=== PATIENT | male | born 1935 | race Caucasian/White ===

== ENCOUNTER 2018-01-14 12:11 | Emergency (ER) | payer MEDICARE ==
[~2018-01-14] VITALS: Ht 180.3 cm; Wt 104.3 kg
[~2018-01-14 12:11] MED LIST: ALBU90OI; AMLO10 PO; AMLO5 PO; AMOX500; ASPI325EC PO; ASPI81CH PO; ATEN25; ATOR10 PO; CAND32; CHLO25B PO; CHOLP PO; CLOP75 PO; DOXE50; DOXE50 PO; HYDACE5 PO; HYDCHL25; IPRA.03NI; Isosorbide Mono60 MG PO; Klor-Con M1010 MEQ PO; METF500C PO; METO50 PO; METPRE4DP PO; Nitrostat0.4 MG SL; PANT40 PO; POTA8; POTA8 PO; RANO500T PO; SIMV10 PO; SIMVASTATIN
[2018-01-14] MEDS ORDERED: PANT40 PO (12:31)
[2018-01-14 12:52] LABS: BASOPHILS ABSOLUTE AUTO 0.06 K/mm3 (0.00-0.23); BASOPHILS PERCENT AUTO 1 % (0-2); EOSINOPHILS ABSOLUTE AUTO 0.11 K/mm3 (0.00-0.68); EOSINOPHILS PERCENT AUTO 2 % (0-6); Hematocrit 42.6 % (37.0-53.0); Hemoglobin 14.3 g/dL (13.5-17.5); IMMATURE GRAN ABSOLUTE AUTO 0.02 K/mm3 (0.00-0.10); IMMATURE GRAN PERCENT AUTO 0 % (0-1); LYMPHOCYTES PERCENT AUTO 19 % (21-46); MONOCYTES ABSOLUTE AUTO 0.52 K/mm3 (0.16-1.47); MONOCYTES PERCENT AUTO 8 % (4-13); Mean Corpuscular HGB 29.5 pg (26.0-34.0); Mean Corpuscular HGB Conc 33.6 g/dL (31.5-36.5); Mean Corpuscular Volume 88 fL (80-100); Mean Platelet Volume 10.3 fL (9.1-12.4); NEUTROPHILS ABSOLUTE AUTO 4.88 K/mm3 (1.96-9.15); NEUTROPHILS PERCENT AUTO 71 % (41-73); Platelet Count 187 K/mm3 (150-400); RDW Coefficient Variation 12.2 % (11.7-14.2); RDW Standard Deviation 39.6 fL (35.1-46.3); Red Blood Cell Count 4.85 M/mm3 (4.30-5.90); White Blood Cell Count 6.89 K/mm3 (4.00-11.30)
[2018-01-14 13:07] LABS: Source, Urine Voided
[2018-01-14 13:11] LABS: Appearance, Urine Clear (Clear); Bilirubin, Urine Neg (Neg); Blood, Urine Neg (Neg); Color, Urine Yellow (P-Yellow); Glucose Qualitative, Urine 2+ (Neg); Ketones, Urine Neg (Neg); Leukocyte Esterase, Urine 1+ (Neg); Nitrite, Urine Neg (Neg); Protein, Urine 2+ (Neg); Specific Gravity, Urine 1.015 (1.003-1.022); Urobilinogen, Urine NORM (Normal)
[2018-01-14 13:12] LABS: Albumin, Blood 3.5 g/dL (3.4-5.0); Bilirubin, Total 0.6 mg/dL (0.1-1.0); Bun/Creatinine Ratio 12.9 (12.0-20.0); Calcium, Blood 8.6 mg/dL (8.5-10.1); Creatinine, Blood 1.4 mg/dL (0.60-1.20); Globulin, Blood 3.5 g/dL (2.2-4.0); Potassium, Blood 4.4 mmol/L (3.5-5.5)
[2018-01-14 13:39] LABS: Bacteria Rare /hpf; Mucus Mod (0-Heavy); Red Blood Cells, Urine 0-2 /hpf (0-2); Squamous Epithelial Cells Few /hpf (Few)
== END 2018-01-14 15:15 | disposition home or self-care (01) ==
LOC: ER 12:11
PROVIDERS: Emergency Medicine
DX: I10 Essential (primary) hypertension (principal); R55 Syncope and collapse; E11.9 Type 2 diabetes mellitus without complications; E78.00 Pure hypercholesterolemia, unspecified; Z87.891 Personal history of nicotine dependence
CPT/HCPCS: 36415; 70450; 71046; 80053; 81001; 84484; 85025; 93005; 93010; 99284-25

== ENCOUNTER 2018-04-19 06:43 | Emergency (ER) | payer MEDICARE ==
[~2018-04-19] VITALS: Ht 180.3 cm; Wt 108.9 kg
[2018-04-19 07:15] LABS: BASOPHILS ABSOLUTE AUTO 0.03 K/mm3 (0.00-0.23); BASOPHILS PERCENT AUTO 0 % (0-2); EOSINOPHILS ABSOLUTE AUTO 0.02 K/mm3 (0.00-0.68); EOSINOPHILS PERCENT AUTO 0 % (0-6); Hematocrit 42.9 % (37.0-53.0); Hemoglobin 14.3 g/dL (13.5-17.5); IMMATURE GRAN ABSOLUTE AUTO 0.06 K/mm3 (0.00-0.10); IMMATURE GRAN PERCENT AUTO 1 % (0-1); LYMPHOCYTES ABSOLUTE AUTO 0.93 K/mm3 (0.84-5.20); LYMPHOCYTES PERCENT AUTO 7 % (21-46); MONOCYTES PERCENT AUTO 5 % (4-13); Mean Corpuscular HGB 28.9 pg (26.0-34.0); Mean Corpuscular HGB Conc 33.3 g/dL (31.5-36.5); Mean Corpuscular Volume 87 fL (80-100); Mean Platelet Volume 10.5 fL (9.1-12.4); NEUTROPHILS ABSOLUTE AUTO 11.51 K/mm3 (1.96-9.15); NEUTROPHILS PERCENT AUTO 87 % (41-73); Platelet Count 198 K/mm3 (150-400); RDW Coefficient Variation 12.5 % (11.7-14.2); RDW Standard Deviation 39.8 fL (35.1-46.3); Red Blood Cell Count 4.94 M/mm3 (4.30-5.90); White Blood Cell Count 13.25 K/mm3 (4.00-11.30)
[2018-04-19 07:28] LABS: Alanine Aminotransfer (ALT/SGP 26 U/L (12-78); Albumin, Blood 3.8 g/dL (3.4-5.0); Alk Phos 99 U/L (50-136); Anion Gap 7 mmol/L (6-16); Aspartate Aminotrans (AST/SGOT 18 U/L (12-37); Bilirubin, Total 0.7 mg/dL (0.1-1.0); Blood Urea Nitrogen 20 mg/dL (8-24); Bun/Creatinine Ratio 17.9 (12.0-20.0); CO2, Blood 27 mmol/L (21-32); Calcium, Blood 8.8 mg/dL (8.5-10.1); Chloride, Blood 100 mmol/L (98-108); Creatinine, Blood 1.12 mg/dL (0.60-1.20); Globulin, Blood 3.8 g/dL (2.2-4.0); Glomerular Filtration Rate >60 (60-); Glucose, Blood 178 mg/dL (70-99); Potassium, Blood 4.1 mmol/L (3.5-5.5); Sodium, Blood 134 mmol/L (136-145); Total Protein, Blood 7.6 g/dL (6.4-8.2)
[2018-04-19 07:38] LABS: Source, Urine Clean Catch
[2018-04-19 07:41] LABS: Bilirubin, Urine Neg (Neg); Blood, Urine Neg (Neg); Glucose Qualitative, Urine 2+ (Neg); Ketones, Urine 2+ (Neg); Leukocyte Esterase, Urine 1+ (Neg); Nitrite, Urine Neg (Neg); Protein, Urine 2+ (Neg); Specific Gravity, Urine 1.025 (1.003-1.022); Urobilinogen, Urine NORM (Normal)
[2018-04-19 07:47] LABS: Appearance, Urine Clear (Clear); Color, Urine Yellow (P-Yellow)
[2018-04-19 07:50] LABS: Red Blood Cells, Urine Rare /hpf (0-2); Squamous Epithelial Cells Rare /hpf (Few)
[2018-04-19 07:51] LABS: Bacteria Few /hpf; Mucus Light (0-Heavy)
[2018-04-19] MEDS ORDERED: Colace100 MG PO (11:49)
[2018-04-19] MEDS ORDERED: Flomax0.4 MG PO (11:49)
== END 2018-04-19 12:13 | disposition home or self-care (01) ==
LOC: ER 06:43
PROVIDERS: Emergency Medicine
DX: K56.41 Fecal impaction (principal); R33.9 Retention of urine, unspecified; E11.9 Type 2 diabetes mellitus without complications; E78.00 Pure hypercholesterolemia, unspecified; Z87.891 Personal history of nicotine dependence; Z86.73 Personal history of transient ischemic attack (TIA), and cerebral infarction without residual deficits; Z88.0 Allergy status to penicillin; Z88.8 Allergy status to other drugs, medicaments and biological substances; Z79.82 Long term (current) use of aspirin; Z79.899 Other long term (current) drug therapy
CPT/HCPCS: 51701; 51798; 74022; 80053; 81001; 83690; 85025; 87086; 99284-25

== ENCOUNTER 2018-04-30 18:11 | Inpatient (IN) | payer MEDICARE ==
[~2018-04-30] VITALS: Ht 180.3 cm; Wt 111.9 kg
[~2018-04-30 18:11] MED LIST changes: +Colace100 MG PO; +Flomax0.4 MG PO
[2018-04-30 18:41] LABS: BASOPHILS ABSOLUTE AUTO 0.02 K/mm3 (0.00-0.23); BASOPHILS PERCENT AUTO 0 % (0-2); EOSINOPHILS ABSOLUTE AUTO 0.05 K/mm3 (0.00-0.68); EOSINOPHILS PERCENT AUTO 1 % (0-6); Hematocrit 38.1 % (37.0-53.0); Hemoglobin 12.7 g/dL (13.5-17.5); IMMATURE GRAN ABSOLUTE AUTO 0.04 K/mm3 (0.00-0.10); IMMATURE GRAN PERCENT AUTO 1 % (0-1); LYMPHOCYTES ABSOLUTE AUTO 1.38 K/mm3 (0.84-5.20); LYMPHOCYTES PERCENT AUTO 16 % (21-46); MONOCYTES ABSOLUTE AUTO 0.77 K/mm3 (0.16-1.47); MONOCYTES PERCENT AUTO 9 % (4-13); Mean Corpuscular HGB 29.3 pg (26.0-34.0); Mean Corpuscular HGB Conc 33.3 g/dL (31.5-36.5); Mean Corpuscular Volume 88 fL (80-100); Mean Platelet Volume 10.2 fL (9.1-12.4); NEUTROPHILS ABSOLUTE AUTO 6.24 K/mm3 (1.96-9.15); NEUTROPHILS PERCENT AUTO 73 % (41-73); Platelet Count 217 K/mm3 (150-400); RDW Coefficient Variation 12.4 % (11.7-14.2); RDW Standard Deviation 40.3 fL (35.1-46.3); Red Blood Cell Count 4.33 M/mm3 (4.30-5.90)
[2018-04-30 18:56] LABS: International Normalized Ratio 1.03; Prothrombin Time Results 10.9 Sec (9.7-11.5)
[2018-04-30 18:59] LABS: Albumin, Blood 2.8 g/dL (3.4-5.0); Albumin/Globulin Ratio 0.7 (0.8-1.8); Bilirubin, Total 0.7 mg/dL (0.1-1.0); Calcium, Blood 8.3 mg/dL (8.5-10.1); Creatinine, Blood 1.25 mg/dL (0.60-1.20); Free Thyroxine 1.54 ng/dL (0.70-1.60); Magnesium, Blood 1.8 mg/dL (1.6-2.4); Potassium, Blood 3.9 mmol/L (3.5-5.5); Total Protein, Blood 6.8 g/dL (6.4-8.2); Troponin I 0.255 ng/mL (0.000-0.040)
[2018-04-30 19:03] LABS: Thyroid Stimulating Hormone 0.904 uIU/mL (0.360-4.800)
--- NOTE | 2018-04-30 21:45 | NUR ---
ASSUMED CARE- PT ARRIVES TO [facility] AT APPROXIMATELY 2114. AOX4, [place], AMBULATES WITH STANDBY ASSIST TO HOSPITAL BED WITHOUT DIFFICULTY. CARDIZEM DRIP CURRENTLY INFUSING AT 10 MG/HR FOR ATRIAL FIBRILLATION WITH RATE IN THE 110'S-120'S THAT ELEVATES SLIGHTLY WITH ACTIVITY, ALL OTHER VSS. LUNGS SOUNDS CLEAR IN ALL UPPER LOBES, DIMINISHED IN THE BASES. DRY, HACKING, NON-PRODUCTIVE COUGH NOTED, PT STATES HE HAS HAD IT "FOR A BIT". PT DENIES CHEST PAIN, SHORTNESS OF BREATH, OR DIZZINESS/LIGHTHEADEDNESS. PT ORIENTED TO ROOM AND CALL LIGHT SYSTEM, ENCOURAGED TO CALL FOR ASSISTANCE WITH ANY NEEDS, INCLUDING RESTROOM ASSISTANCE. PT EDUCATED ON ORDERED HEPARIN DRIP AND SECONDARY IV STARTED FOR INFUSION. PT NOTED TO HAVE GLASSES AND STATES THAT HE HAS FULL UPPER DENTURES AND PARTIAL LOWER DENTURES, ALL WITH PATIENT. WILL CONTINUE WITH ADMISSION AND MONITORING. BED IN LOWEST POSITION, CALL LIGHT IN REACH.
--- NOTE | 2018-05-01 00:56 | NUR ---
RHYTHM CONVERSION PT CONVERTED TO NORMAL SINUS RHYTHM AT 0056 WITH A RATE IN THE 70-80'S. CARDIZEM DRIP CURRENTLY ON STANDBY. NO NOTED CHANGE IN PATIENT CONDITION. WILL CONTINUE MONITORING. BED IN LOW POSITION, CALL LIGHT IN REACH.
[2018-05-01 04:04] LABS: Hematocrit 37.9 % (37.0-53.0); Hemoglobin 12.4 g/dL (13.5-17.5); Mean Corpuscular HGB 28.8 pg (26.0-34.0); Mean Corpuscular HGB Conc 32.7 g/dL (31.5-36.5); Mean Corpuscular Volume 88 fL (80-100); Mean Platelet Volume 10.3 fL (9.1-12.4); Platelet Count 232 K/mm3 (150-400); RDW Coefficient Variation 12.3 % (11.7-14.2); RDW Standard Deviation 39.8 fL (35.1-46.3)
[2018-05-01 04:22] LABS: Anion Gap 7 mmol/L (6-16); Blood Urea Nitrogen 15 mg/dL (8-24); Bun/Creatinine Ratio 12.6 (12.0-20.0); CO2, Blood 29 mmol/L (21-32); Chloride, Blood 99 mmol/L (98-108); Creatinine, Blood 1.19 mg/dL (0.60-1.20); Glomerular Filtration Rate >60 (60-); Glucose, Blood 181 mg/dL (70-99); Potassium, Blood 3.9 mmol/L (3.5-5.5); Sodium, Blood 135 mmol/L (136-145)
--- NOTE | 2018-05-01 06:12 | NUR ---
SHIFT SUMMARY- PT HAS REMAINED AOX4 THROUGHOUT SHIFT. VSS. PLEASANT AND COOPERATIVE WITH CARE. PT HAS REMAINED IN SINUS RHYTHM SINCE CONVERSION EARLY THIS AM AND CARDIZEM DRIP REMAINS ON STANDBY. HEPARIN DRIP INFUSING PER ORDERS AND TITRATED PER PHARMACY. PT HAS DENIED CHEST PAIN OR SHORTNESS OF BREATH SINCE ARRIVAL. NO OTHER CHANGES FROM INITIAL ASSESSMENT. WILL CONTINUE TO MONITOR AND REPORT TO ONCOMING RN. BED IN LOW POSITION, CALL LIGHT IN REACH.
--- NOTE | 2018-05-01 08:29 | NUR ---
BEGINNING OF SHIFT Assumed care of pt at 0700. Report received from DAVID Arita. Shift assessment completed. Pt in normal sinus rhtyhm. Room air. Mobilizes with SBA. Bed in lowest position. Call light in reach. Pt denies need at this time.
--- NOTE | 2018-05-01 09:42 | NUR ---
Echocardiogram completed.
--- NOTE | 2018-05-01 18:17 | NUR ---
SHIFT SUMMARY No acute changes t/o shift. Pt has remained in SR for entire shift. Independent in room. Tolerating activity well. This RN discussed new medications precribed to patient today, as well as side effects. Pt asked questions. At end of discussion, pt verbalized understanding for why he is taking new medication and what potential side effects are. Bed in lowest position. Call light in reach. Pt denies need at this time. Will continue to closely monitor until care handoff and bedside report with oncoming RN.
--- NOTE | 2018-05-02 | NUR ---
MIDNIGHT VITALS PT REQUESTING TO SLEEP AND NOT BE WOKEN UP FOR MIDNIGHT VITAL SIGNS UNLESS ALREADY AWAKE.
[2018-05-02 05:46] LABS: BASOPHILS ABSOLUTE AUTO 0.02 K/mm3 (0.00-0.23); BASOPHILS PERCENT AUTO 0 % (0-2); EOSINOPHILS ABSOLUTE AUTO 0.14 K/mm3 (0.00-0.68); EOSINOPHILS PERCENT AUTO 2 % (0-6); Hemoglobin 11.6 g/dL (13.5-17.5); IMMATURE GRAN ABSOLUTE AUTO 0.04 K/mm3 (0.00-0.10); IMMATURE GRAN PERCENT AUTO 1 % (0-1); LYMPHOCYTES ABSOLUTE AUTO 1.16 K/mm3 (0.84-5.20); LYMPHOCYTES PERCENT AUTO 14 % (21-46); MONOCYTES ABSOLUTE AUTO 0.68 K/mm3 (0.16-1.47); MONOCYTES PERCENT AUTO 8 % (4-13); Mean Corpuscular HGB 28.8 pg (26.0-34.0); Mean Corpuscular HGB Conc 33.1 g/dL (31.5-36.5); Mean Corpuscular Volume 87 fL (80-100); Mean Platelet Volume 10.1 fL (9.1-12.4); NEUTROPHILS ABSOLUTE AUTO 6.33 K/mm3 (1.96-9.15); NEUTROPHILS PERCENT AUTO 76 % (41-73); Platelet Count 219 K/mm3 (150-400); RDW Coefficient Variation 12.3 % (11.7-14.2); RDW Standard Deviation 39.1 fL (35.1-46.3); Red Blood Cell Count 4.03 M/mm3 (4.30-5.90); White Blood Cell Count 8.37 K/mm3 (4.00-11.30)
[2018-05-02 06:06] LABS: Alanine Aminotransfer (ALT/SGP 43 U/L (12-78); Albumin, Blood 2.5 g/dL (3.4-5.0); Albumin/Globulin Ratio 0.7 (0.8-1.8); Alk Phos 112 U/L (50-136); Anion Gap 8 mmol/L (6-16); Aspartate Aminotrans (AST/SGOT 25 U/L (12-37); Bilirubin, Total 0.6 mg/dL (0.1-1.0); Blood Urea Nitrogen 13 mg/dL (8-24); Bun/Creatinine Ratio 10.6 (12.0-20.0); CO2, Blood 29 mmol/L (21-32); Chloride, Blood 100 mmol/L (98-108); Creatinine, Blood 1.23 mg/dL (0.60-1.20); Globulin, Blood 3.7 g/dL (2.2-4.0); Glomerular Filtration Rate >60 (60-); Glucose, Blood 133 mg/dL (70-99); Magnesium, Blood 1.9 mg/dL (1.6-2.4); Potassium, Blood 4.2 mmol/L (3.5-5.5); Sodium, Blood 137 mmol/L (136-145); Total Protein, Blood 6.2 g/dL (6.4-8.2)
--- NOTE | 2018-05-02 06:35 | NUR ---
SHIFT SUMMARY- PT HAS REMAINED AOX4 THROUGHOUT SHIFT. VSS. PLEASANT AND COOPERATIVE WITH CARE. PT HAS RESTED THROUGHOUT MOST OF THE NIGHT. DENIES CHEST PAIN, SHORTNESS OF BREATH OR DIZZINESS. PT CONTINUES TO AMBULATE INDEPENDENTLY IN ROOM. NO OTHER CHANGES NOTED FROM INITIAL ASSESSMENT. WILL CONTINUE TO MONITOR AND REPORT TO ONCOMING RN. BED IN LOW POSITION, CALL LIGHT IN REACH.
[2018-05-02 08:29] LABS: Source, Urine Voided
[2018-05-02 08:42] LABS: Appearance, Urine Hazy (Clear); Bilirubin, Urine Neg (Neg); Blood, Urine 3+ (Neg); Color, Urine Yellow (P-Yellow); Glucose Qualitative, Urine Neg (Neg); Ketones, Urine 1+ (Neg); Leukocyte Esterase, Urine 3+ (Neg); Nitrite, Urine Pos (Neg); Protein, Urine 2+ (Neg); Specific Gravity, Urine 1.005 (1.003-1.022); Urobilinogen, Urine 1+ (Normal)
--- NOTE | 2018-05-02 08:47 | NUR ---
BEGINNING OF SHIFT Assumed care at 0700. Report received from Lyla HERNANDEZ. Pt on room air. Independent in room. Verbalizes desire to go home today. Pt okay to go home per cardiology. Awaiting hospitalist to round on pt. Bed in lowest position. Call light in reach. Pt denies need at this time.
[2018-05-02 08:53] LABS: White Blood Cells, Urine TNTC /hpf (0-5)
[2018-05-02 08:54] LABS: Bacteria Many /hpf; Red Blood Cells, Urine 50-100 /hpf (0-2); Squamous Epithelial Cells Not Seen /hpf (Few)
[2018-05-02] MEDS ORDERED: ASPI81CH PO ×2 (10:42→10:59)
[2018-05-02] MEDS ORDERED: XARELTO20 MG PO (10:56)
[2018-05-02] MEDS ORDERED: Amiodarone HCl200 MG PO (10:57)
[2018-05-02] MEDS ORDERED: LEVFLO500 PO (11:32)
--- NOTE | 2018-05-02 12:46 | NUR ---
DISCHARGE Pt discharged from unit at 1222 accompanied by spouse. Pt escorted out of hospital via wheelchair, accompanied by Juliette PATEL. Medication changes reviewed with patient. New medications and side effects reviewed with patient. Written prescriptions provided and medications faxed to [facility]. Pt also sent home with sample of 20 mg Xarelto with instructions. Telemetry removed. IV access discontinued.
== END 2018-05-02 12:20 | disposition home or self-care (01) | DRG 309 ==
LOC: ER 18:11 → PCU 20:45
PROVIDERS: Emergency Medicine; Internal Medicine; Nurse Practitioner Acute Care; ADMIT Hospitalist
DX: I48.91 Unspecified atrial fibrillation (principal); I50.22 Chronic systolic (congestive) heart failure; I25.10 Atherosclerotic heart disease of native coronary artery without angina pectoris; E78.5 Hyperlipidemia, unspecified; E11.9 Type 2 diabetes mellitus without complications; I11.0 Hypertensive heart disease with heart failure; K21.9 Gastro-esophageal reflux disease without esophagitis; D33.2 Benign neoplasm of brain, unspecified; Z95.5 Presence of coronary angioplasty implant and graft; Z95.3 Presence of xenogenic heart valve; Z88.1 Allergy status to other antibiotic agents; Z88.0 Allergy status to penicillin; Z88.8 Allergy status to other drugs, medicaments and biological substances; Z79.82 Long term (current) use of aspirin; Z79.84 Long term (current) use of oral hypoglycemic drugs; Z79.899 Other long term (current) drug therapy
CPT/HCPCS: 36415; 71046; 80048; 80053; 81001; 82947; 83735; 83880; 84439; 84443; 84484; 85025; 85027; 85610; 85730; 87077; 87086; 87186; 93005; 93010; 93306; 96365; 99285-25; J1644; J1940

== ENCOUNTER 2018-08-31 06:09 | Day surgery (SDC) | payer MEDICARE ==
[~2018-08-31] VITALS: Ht 180.3 cm; Wt 106.7 kg
[~2018-08-31 06:09] MED LIST changes: +ATOR40TA PO; +Amiodarone HCl200 MG PO; +ELIQUIS5 MG PO; +LEVFLO500 PO; +LO-DOSE ASPIRIN81 MG PO; +METAMUCIL SUGA283 GM PO; +METFORMIN HCL500 MG PO; +METO25 PO; +NITR.4SL SL; +Pacerone100 MG PO; +TAMS.4ER PO; +XARELTO20 MG PO
[2018-09-01] MEDS ORDERED: Amiodarone HCl200 MG PO ×2 (21:55)
[2018-09-01] MEDS ORDERED: DOCU100 PO ×2 (21:59)
[2018-09-01] MEDS ORDERED: METF500 PO ×2 (22:00)
[2018-09-01] MEDS ORDERED: MELA3 PO ×2 (22:00)
[2018-09-01] MEDS ORDERED: TRIA15CR3 TOP ×2 (22:02)
== END 2018-08-31 10:05 | disposition home or self-care (01) ==
LOC: ORSCSDS 06:09
PROVIDERS: Otolaryngology
PROC: 0CUT0JZ Supplement Right Vocal Cord with Synthetic Substitute, Open Approach (ICD-10-PCS; principal; 2018-08-31 07:30)
DX: J38.00 Paralysis of vocal cords and larynx, unspecified (principal); R13.14 Dysphagia, pharyngoesophageal phase; I10 Essential (primary) hypertension; I25.10 Atherosclerotic heart disease of native coronary artery without angina pectoris; J44.9 Chronic obstructive pulmonary disease, unspecified; Z87.891 Personal history of nicotine dependence; E11.9 Type 2 diabetes mellitus without complications; Z86.73 Personal history of transient ischemic attack (TIA), and cerebral infarction without residual deficits; Z79.899 Other long term (current) drug therapy; Z79.82 Long term (current) use of aspirin
CPT/HCPCS: 82947; C1878; J1100; J2250; J2704; J7120

== ENCOUNTER 2018-09-01 20:47 | Inpatient (IN) | payer MEDICARE ==
[~2018-09-01] VITALS: Ht 177.8 cm; Wt 100.0 kg
[2018-09-01 21:24] LABS: BASOPHILS ABSOLUTE AUTO 0.03 K/mm3 (0.00-0.23); BASOPHILS PERCENT AUTO 0 % (0-2); EOSINOPHILS ABSOLUTE AUTO 0.03 K/mm3 (0.00-0.68); EOSINOPHILS PERCENT AUTO 0 % (0-6); Hematocrit 40.9 % (37.0-53.0); Hemoglobin 13.5 g/dL (13.5-17.5); IMMATURE GRAN ABSOLUTE AUTO 0.04 K/mm3 (0.00-0.10); IMMATURE GRAN PERCENT AUTO 0 % (0-1); LYMPHOCYTES ABSOLUTE AUTO 2.17 K/mm3 (0.84-5.20); LYMPHOCYTES PERCENT AUTO 19 % (21-46); MONOCYTES ABSOLUTE AUTO 0.89 K/mm3 (0.16-1.47); MONOCYTES PERCENT AUTO 8 % (4-13); Mean Corpuscular HGB 29.4 pg (26.0-34.0); Mean Corpuscular Volume 89 fL (80-100); NEUTROPHILS PERCENT AUTO 72 % (41-73); RDW Coefficient Variation 13.4 % (11.7-14.2); RDW Standard Deviation 43.7 fL (35.1-46.3); Red Blood Cell Count 4.59 M/mm3 (4.30-5.90); White Blood Cell Count 11.26 K/mm3 (4.00-11.30)
[2018-09-01 21:26] LABS: Mean Platelet Volume 11.4 fL (9.1-12.4); Platelet Count 142 K/mm3 (150-400)
[2018-09-01 21:38] LABS: International Normalized Ratio 1.01; Prothrombin Time Results 10.7 Sec (9.7-11.5)
[2018-09-01 21:39] LABS: Bun/Creatinine Ratio 11.5 (12.0-20.0); Calcium, Blood 8.8 mg/dL (8.5-10.1); Creatinine, Blood 1.3 mg/dL (0.60-1.20); Potassium, Blood 3.8 mmol/L (3.5-5.5)
--- NOTE | 2018-09-01 21:45 | NUR ---
ADMIT PT ARRIVES VIA STRETCHER FROM OR S/P NECK HEMATOMA EVACUATION. PER HX, PT HAD RT MEDIALIZATION THYROPLASTY W/ DR GUERRERO ON 08/31 AND RESTARTED ELIQUIS THAT SAME NIGHT. THIS EVENING, PT COUGHED AND NOTED IMMEDIATE SWELLING TO NECK BELOW CHIN. AT ADMIT, PT IS AWAKE, ALERT AND MAINTAINING OWN AIRWAY ON OXYMIZER AT 15L WITH O2 SATS OF 99% AND ON TXA GTT AT 63.75ML/HR X 1. NO STRIDOR AUSCULTATES AND VOICE IS HOARSE. PT HAS FREQUENT MOIST COUGH BUT IS MANAGING WELL WITH YANKAUER SUCTION. PT REPORTS HE FEELS THAT HIS BREATHING IS "MUCH BETTER" THAN AT ARRIVAL AND DENIES PAIN OR CONCERNS. PT'S DAUGHTER SILVIA TO ROOM AND PLANS TO SPEND THE NIGHT. ECG SHOWS SR, BP HYPERTENISIVE, AWAITING CALL BACK FROM DR DUMAS FOR ADMIT ORDERS.
[2018-09-01] MEDS ORDERED: Amiodarone HCl200 MG PO ×2 (21:55)
[2018-09-01] MEDS ORDERED: DOCU100 PO ×2 (21:59)
[2018-09-01] MEDS ORDERED: METF500 PO ×2 (22:00)
[2018-09-01] MEDS ORDERED: MELA3 PO ×2 (22:00)
[2018-09-01] MEDS ORDERED: TRIA15CR3 TOP ×2 (22:02)
--- NOTE | 2018-09-02 00:59 | NUR ---
UPDATE ADMIT ORDERS INITIATED. CONTINUES TO MANAGE AIRWAY WITH YANKAUER SUCTION. HAVE BEEN ABLE TO TITRATE O2 DOWN TO 5L/NC WITH O2 SATS IN THE MID 90'S. BP IMPROVED POST HYDRALAZINE ADMINISTRATION. NS AT 75ML/HR W/ TXA INFUSING.
--- NOTE | 2018-09-02 01:47 | NUR ---
DR DUMAS DR HERE TO ASSESS PT, NO NEW ORDERS AT THIS TIME.
[2018-09-02 05:03] LABS: Hematocrit 37.3 % (37.0-53.0); Hemoglobin 12.2 g/dL (13.5-17.5); Mean Corpuscular HGB 29.3 pg (26.0-34.0); Mean Corpuscular HGB Conc 32.7 g/dL (31.5-36.5); Mean Corpuscular Volume 89 fL (80-100); Platelet Count 136 K/mm3 (150-400); RDW Coefficient Variation 13.3 % (11.7-14.2); RDW Standard Deviation 44.2 fL (35.1-46.3); Red Blood Cell Count 4.17 M/mm3 (4.30-5.90); White Blood Cell Count 9.76 K/mm3 (4.00-11.30)
[2018-09-02 05:48] LABS: Alanine Aminotransfer (ALT/SGP 23 U/L (12-78); Albumin, Blood 3.4 g/dL (3.4-5.0); Albumin/Globulin Ratio 1.1 (0.8-1.8); Alk Phos 72 U/L (50-136); Anion Gap 4 mmol/L (6-16); Aspartate Aminotrans (AST/SGOT 15 U/L (12-37); Bilirubin, Total 0.5 mg/dL (0.1-1.0); Blood Urea Nitrogen 13 mg/dL (8-24); CO2, Blood 30 mmol/L (21-32); Calcium, Blood 8.3 mg/dL (8.5-10.1); Chloride, Blood 104 mmol/L (98-108); Creatinine, Blood 1.08 mg/dL (0.60-1.20); Glomerular Filtration Rate >60 (60-); Glucose, Blood 193 mg/dL (70-99); Potassium, Blood 4.2 mmol/L (3.5-5.5); Sodium, Blood 138 mmol/L (136-145); Total Protein, Blood 6.4 g/dL (6.4-8.2)
--- NOTE | 2018-09-02 06:23 | NUR ---
SHIFT SUMMARY NO ACUTE EVENTS OVERNIGHT. P'S VOICE SOUNDS LESS HOARSE THAN AT ARRIVAL AND PT CONTINUES TO REPORT HIS BREATHING HAS IMPROVED AND HE DOES NOT FEEL THE SWELLING THAT INITIALLY BROUGHT HIM IN TO ER. PT DOES HAVE THROAT PAIN WITH SWALLOW-NPO STATUS MAINTAINED. PT HAS FREQUENT PRODUCTIVE COUGH THAT HE IS MANAGING WITH YANKAUER SUCTION, SECRETIONS ARE MODERATELY THICK AND XAVIER-NO BLOOD. DRESSING HAS BLOOD STRIKE THROUGH ON THE LOWER BORDER. BP HAS BEEN HYPERTENSIVE, PT HAS BEEN MEDICATED X 2 WITH HYDRALAZINE AND X 1 WITH LABETALOL TO ACHIEVE SBP <160/REDUCED RISK OF BLEEDING. O2 SATS 97% ON 3L/NC, ECG SHOWS SR W/ BBB IN THE 70'S.
--- NOTE | 2018-09-02 15:10 | NUR ---
DR. GUERRERO HERE TO SEE SEE PT. DISCUSSED ALLOWING PT TO HAVE ANY PO INTAKE AND HE STATED THAT PT HAD BEEN WORKING WITH SPEECH THERAPY BEFORE LAST NIGHT'S EVENTS AND HE WAS A VERY HIGH RISK FOR ASPIRATION THEN. DR. GUERRERO BELIEVES PT WAS ONLY SUPPOSED TO BE TAKING TEASPOONFULS OF LIQUID NUTRITION DRINKS LIKE GLUCERNA. HE STATES THAT BECAUSE LAST NIGHTS EVENTS LIKELY INFLAMED PT'S THROAT FURTHER HE WOULD LIKE PT TO REMAIN COMPLETELY NPO UNTIL SPEECH THERAPY CAN SEE HIM. HE DISCUSSED THIS WITH THE PT AND DR. JACOBSON WELL. DR. GUERRERO GAVE OK FOR PT TO BE PCU STATUS. PT CONTINUES TO REST IN BED, DANGLE AT THE BEDSIDE AT TIMES. DRAINAGE ON THE DRESSING HAS REMAIN UNCHANGED THROUGHOUT THE SHIFT. PT DENIES ANY PAIN, EXCEPT A LITTLE WITH SWALLOWING. HE HAS A MODERATE AMT OF THICK XAVIER SPUTUM THAT HE HAS BEEN ABLE TO CLEAR BY CLEARING HIS THROAT INSTEAD OF FORCEFULLY COUGHING. HE STARTED THE SHIFT ON 3L/NC AND 97% SPO2, TURNED DOWN TO 2L/NC AND REMAINED 97% SO TRIED TURNING HIM TO RA, BUT PT DESATTED TO 88% SO TURNED BACK TO 1L/NC.
--- NOTE | 2018-09-02 17:39 | NUR ---
SHIFT SUMMARY PT HAS REMAINED NPO THROUGHOUT SHIFT. HAS BEEN MANAGING THICK ORAL SECRETIONS BY SELF SUCTIONING NEEDED. PT HAS DENIED PAIN WHEN ASKED. NO ADDITIONAL DRAINAGE OBSERVED ON DRESSING THROUGHOUT SHIFT. PT STATES HE IS TIRED, BUT OTHERWISE NO COMPLAINTS AT THIS TIME.
--- NOTE | 2018-09-02 19:15 | NUR ---
ASSUMED CARE PT SITTING UP IN CHAIR WITH DAUGHTER IN ROOM. PT IS A&O X 4 AND CURRENTLY WITHOUT COMPLAINTS OF PAIN BUT DOES HAVE CONCERNS THAT DISCHARGE WILL BE DELAYED UNTIL TUESDAY S/T DR GUERRERO REQUESTING SWALLOW EVAL PRIOR TO DISCHARGE. PT STATES, "I AM NOT SURE I WILL MAKE IT THAT LONG, I MAY HAVE TO LEAVE AND COME BACK." PER DTR AND PT, UPCOMING EVAL W/ DR GUERRERO 09/08 FOR POTENTIAL PEG TUBE PLACMENT, ADVISED PT THAT THIS MAY BE AN OPTION PRIOR TO DISCHARGE WELL, DISCUSSED USE, NO CHANGE TO PHYSICAL ACTIVITY AND USUALLY DONE SAME DAY SURGERY. PT GIVEN READING MATERIAL FOR FURTHER EDUCATION. PT CONTINUES TO USE YANKAUER SUCTION TO MANAGE SECRETIONS. ECG SHOWS SR W/ BBB, O2 SATS 95% ON 1 L/NC.
[2018-09-03 03:40] LABS: BASOPHILS ABSOLUTE AUTO 0.01 K/mm3 (0.00-0.23); BASOPHILS PERCENT AUTO 0 % (0-2); EOSINOPHILS PERCENT AUTO 0 % (0-6); Hematocrit 38.2 % (37.0-53.0); Hemoglobin 12.4 g/dL (13.5-17.5); IMMATURE GRAN ABSOLUTE AUTO 0.03 K/mm3 (0.00-0.10); IMMATURE GRAN PERCENT AUTO 0 % (0-1); LYMPHOCYTES ABSOLUTE AUTO 1.27 K/mm3 (0.84-5.20); LYMPHOCYTES PERCENT AUTO 11 % (21-46); MONOCYTES ABSOLUTE AUTO 1.11 K/mm3 (0.16-1.47); MONOCYTES PERCENT AUTO 10 % (4-13); Mean Corpuscular HGB 29.2 pg (26.0-34.0); Mean Corpuscular HGB Conc 32.5 g/dL (31.5-36.5); Mean Corpuscular Volume 90 fL (80-100); Mean Platelet Volume 10.7 fL (9.1-12.4); NEUTROPHILS ABSOLUTE AUTO 9.06 K/mm3 (1.96-9.15); NEUTROPHILS PERCENT AUTO 79 % (41-73); Platelet Count 154 K/mm3 (150-400); RDW Coefficient Variation 13.7 % (11.7-14.2); RDW Standard Deviation 45.7 fL (35.1-46.3); Red Blood Cell Count 4.24 M/mm3 (4.30-5.90); White Blood Cell Count 11.48 K/mm3 (4.00-11.30)
[2018-09-03 03:55] LABS: Albumin, Blood 3.3 g/dL (3.4-5.0); Anion Gap 5 mmol/L (6-16); Blood Urea Nitrogen 14 mg/dL (8-24); Bun/Creatinine Ratio 14.3 (12.0-20.0); CO2, Blood 29 mmol/L (21-32); Calcium, Blood 8.3 mg/dL (8.5-10.1); Chloride, Blood 106 mmol/L (98-108); Creatinine, Blood 0.98 mg/dL (0.60-1.20); Glomerular Filtration Rate >60 (60-); Glucose, Blood 129 mg/dL (70-99); Potassium, Blood 3.8 mmol/L (3.5-5.5); Sodium, Blood 140 mmol/L (136-145)
--- NOTE | 2018-09-03 06:11 | NUR ---
SHIFT SUMMARY NO ACUTE EVENTS OVERNIGHT. PT CONTINUES TO PRODUCE A LARGE AMOUNT OF THICK, XAVIER ORAL SECRETIONS THAT HE IS MANAGING WITH YANKAUER SUCTION. NPO STATUS MAINTAINED UNTIL SWALLOW EVAL ESTIMATED TO BE DONE ON TUESDAY. NO STRIDOR, BANDAGE TO INCISION SITE AT NECK IS CONTAINING DRAINAGE FROM ALMAS DRAIN AND BLOOD STRIKE THROUGH HAS INCREASED MINIMALLY. LAST NIGHT PT REPORTED SOME ABD PAIN DESCRIBED AN "ACHE" THAT WAS RESOLVED WITH FENTANYL. BP AGAIN HYPERTENSIVE OVERNIGHT AND PT REQUIRED ONE DOSE OF HYDRALAZINE FOR SBP OF 189. ECG SHOWS SR W/ BBB, O2 SATS >90% ON 1L/NC, LUNGS OCCASIONALLY COARSE BUT CLEAR WITH COUGH.
--- NOTE | 2018-09-03 09:19 | NUR ---
DR. HENSLEY BY TO SEE PT. DISCUSSED PT'S BP AND NUTRITIONW ITH HIM. RECEIVED ORDERS TO START CLONIDINE PATCH AND TO PLACE DIETARY CONSULT FOR PERIPHERAL NUTRITION, SEE ORDERS. ALSO RECEIVED OK TO TRANSFER PT TO SURGICAL FLOOR, NO TELE.
--- NOTE | 2018-09-03 10:33 | NUR ---
TRANSFER PT TRANSFERRED TO SURG 229. REPORT GIVEN TO Marcela VANG. ALL BELONGINGS SENT WITH PT. PT TOLERATED TRANSFER WELL.
--- NOTE | 2018-09-03 11:34 | NUR ---
PT FROM ICU VIA WHEELCHAIR AT APPROX 1030. REPORT RECEIVED FROM SINGEING TORCH OPERATOR. PT TRANSFERED INDEPENDENTLY TO BED. CURRENTLY SITTING UP. DENIES PAIN, NO NAUSEA. SUCTIONING SECRETIONS ON OWN. PT AAOX4, CALLS APPROPRIATLY. CALL LIGHT IN REACH.
--- NOTE | 2018-09-03 15:09 | NUR ---
PT ARRIVED TO UNIT AT APROX 1157 FROM ICU. DRESSING ON NECK HAS LARGE AMOUNT OF SHADOWING PRESENT, MARKED BY PREVIOUS SHIFTS. [place]AS DRAIN VISABLE. DRESSING REINFORCED. PLAN IS FOR DR GUERRERO TO CHANGE DRESSING, REINFORCE NEEDED. SPEECH THERAPY CONSULT FOR TUESDAY BEFORE DISCHARGE PLANNING CAN BEGIN.
--- NOTE | 2018-09-03 15:52 | NUR ---
SHIFT SUMMARY ICU TRANSFER TODAY. HEMATOMA EVACTUATION AND WASHOUT ON NECK. [place]AS DRAIN IN PLACE ON NECK, DRESSING REINFORCED. AAOX4, AMBULATES IND IN ROOM, CALLS APPROPRIATLY. NO C/O PAIN OR NAUSEA. PT SELF SUCTIONS THICK SECRETIONS, COUGHS HEAVILY TO CLEAR, VOICE IS COURSE. NPO AT THIS TIME, AWAITING CLEARANCE BY SPEECH THERAPY, LIPIDS AND CLINIMIX INFUSING FOR NUTRITION.
[2018-09-04 04:31] LABS: Anion Gap 4 mmol/L (6-16); Blood Urea Nitrogen 20 mg/dL (8-24); Bun/Creatinine Ratio 19.8 (12.0-20.0); CO2, Blood 31 mmol/L (21-32); Calcium, Blood 8.5 mg/dL (8.5-10.1); Chloride, Blood 102 mmol/L (98-108); Creatinine, Blood 1.01 mg/dL (0.60-1.20); Glomerular Filtration Rate >60 (60-); Glucose, Blood 141 mg/dL (70-99); Magnesium, Blood 2.2 mg/dL (1.6-2.4); Phosphorus, Blood 3.2 mg/dL (2.5-4.9); Potassium, Blood 3.9 mmol/L (3.5-5.5); Sodium, Blood 137 mmol/L (136-145)
--- NOTE | 2018-09-04 05:03 | NUR ---
SHIFT SUMMARY PT WITH LITTLE REST THIS SHIFT. AAOX4/INSOMNIA. PT REPORTING MINIMAL DISCOMFORT, DENIES PAIN MEDS. NO NAUSEA/EMESIS. DRESSING TO NECK REINFORCED PER DAY SHIFT RN WITH NO NEW DRAINAGE THIS SHIFT. STRICT NPO. PT MOVES WELL IN ROOM. CLINIMIX PER ORDERS. PT REPORTING CHRONIC INSOMNIA AND DENIED FURTHER SLEEP AID NEEDS. NO ACUTE CHANGES THIS SHIFT. CALL LIGHT IN REACH + PT USES FOR ASSISTANCE.
--- NOTE | 2018-09-04 07:30 | NUR ---
pt asking if the dressing can be changed told pt it needs to be changed by dr perales it could dislodge a clot if removed dressing has shadow thru but dry
[2018-09-04 09:20] LABS: Triglycerides 77 mg/dL (30-160)
--- NOTE | 2018-09-04 11:53 | NUR ---
SPEECH THERAPY BY TO SEE PATIENT. UP IN CHAIR FOR MEALS, CLEAR LIQUIDS OK. COUGHING UP THICK SECRETIONS, MANAGING WITH YANKER SUCTION. DR HENSLEY BY TO EVALUATE PT PROGRESS.
--- NOTE | 2018-09-04 15:08 | NUR ---
ans service called re pt's dressing if ok to change dr perales is not manager environmental affairs to day will leave a message on his cell if unable to reach or reach will notify me
--- NOTE | 2018-09-04 18:32 | NUR ---
SHIFT SUMMARY PT AAX4 WITH NO C/O OF PAIN THROUGHOUT SHIFT. ADVANCED TO A CLEAR LIQUID DIET. COUGHING HARSH TO CLEAR SECRETIONS, USING YANKER SUCTION. SPEECH THERAPY STATES LIMITING COUGH WILL PROTECT THE VOCAL CORDS. NO STRAWS WITH LIQUIDS. IND IN ROOM, AT BEDSIDE WITH CALL LIGHT WITHIN REACH.
--- NOTE | 2018-09-04 18:45 | NUR ---
NO NEWS FROM ANS SERVICE RE DR GUERRERO AND DRESSING WILL CALL OFFICE IN AM
[2018-09-05 04:49] LABS: Anion Gap 6 mmol/L (6-16); Blood Urea Nitrogen 28 mg/dL (8-24); Bun/Creatinine Ratio 26.2 (12.0-20.0); CO2, Blood 31 mmol/L (21-32); Calcium, Blood 8.6 mg/dL (8.5-10.1); Chloride, Blood 102 mmol/L (98-108); Creatinine, Blood 1.07 mg/dL (0.60-1.20); Glomerular Filtration Rate >60 (60-); Glucose, Blood 155 mg/dL (70-99); Magnesium, Blood 2.5 mg/dL (1.6-2.4); Phosphorus, Blood 3.6 mg/dL (2.5-4.9); Potassium, Blood 4.2 mmol/L (3.5-5.5); Sodium, Blood 139 mmol/L (136-145)
--- NOTE | 2018-09-05 06:57 | NUR ---
SHIFT SUMMARY PT IS POD #4 THYROPLASTY AND POST HEMATOMA EVACUATION DAY 3. NO ACUTE CHANGES THIS SHIFT, VSS, O2 SATS >90% ON RA. SPEECH EVAL YESTERDAY INDICATES CLEAR LIQUID DIET BY SPOON, NO STRAWS, ALL MEDS CRUSHED. PT IS TOLERATING CLEAR LIQUIDS, DENIES N/V, DENIES PAIN. PT HAS A CHRONIC COUGH, ENCOURAGING PT TO AVOID COUGH TOLERATED TO AVOID IRRITATION OF VOCAL CORDS. PT USES SUCTION TO CLEAR SPUTUM NEEDED, SMALL AMOUNT OF YELLOW SPUTUM NOTED THIS SHIFT. SIGNIFICANT BRUISING NOTED AROUND SURGICAL SITE, DRESSINGS CHANGED THIS SHIFT. PT IS ALERT AND ORIENTED, INDEPENDENT IN ROOM. WILL CONTINUE TO MONITOR.
--- NOTE | 2018-09-05 07:30 | NUR ---
pt sleeping wakes to verbal stimuli stated that he feels like he slept well last night pt has small amt of blood to the new dressing ls improved compared to yesterday dim but cl with faint rhonchi
[2018-09-05] MEDS ORDERED: Nitro-Dur1 EACH TD ×2 (10:14)
--- NOTE | 2018-09-05 11:25 | NUR ---
discharge instructions reviewed with pt verbalized rx called to [facility] pt waiting for his ride earlier his daughter was here and was able to talk with speech re diet
--- NOTE | 2018-09-05 12:02 | NUR ---
wc escort to car talked with dr hernandez again re portable sx difficult to get with insurance also talked with [facility] and they looked into the sx and re dr perales office to try to get it for them thru [facility]
== END 2018-09-05 11:45 | disposition home or self-care (01) | DRG 920 ==
LOC: ER 20:47 → ICUW 20:48 → SURS 22:57 → ICUW 23:12 → SURS 09-03 11:04
PROVIDERS: Emergency Medicine; Family Medicine; Internal Medicine; Otolaryngology; ADMIT Internal Medicine
PROC: 0JC Subcutaneous Tissue and Fascia, Extirpation (ICD-10-PCS; principal; 2018-09-01 22:00)
DX: L76.32 Postprocedural hematoma of skin and subcutaneous tissue following other procedure (principal); I50.22 Chronic systolic (congestive) heart failure; S10.93XA Contusion of unspecified part of neck, initial encounter; I48.91 Unspecified atrial fibrillation; Z79.01 Long term (current) use of anticoagulants; I25.10 Atherosclerotic heart disease of native coronary artery without angina pectoris; E11.9 Type 2 diabetes mellitus without complications; Z79.4 Long term (current) use of insulin; K21.9 Gastro-esophageal reflux disease without esophagitis; E11.65 Type 2 diabetes mellitus with hyperglycemia; I11.0 Hypertensive heart disease with heart failure; J38.01 Paralysis of vocal cords and larynx, unilateral
CPT/HCPCS: 36415; 42961; 71046; 80048; 80053; 80069; 82947; 83735; 84100; 84478; 85025; 85027; 85610; 85730; 86850; 86900; 86901; 92526; 92610; 94640; 94760; 96365-59; 96375; 96375-59; 99285-25; C9113; G0378; J0360; J1100; J2250; J2405; J3010; J7030; J7040

== ENCOUNTER 2019-02-28 10:33 | Day surgery (SDC) | payer MEDICARE ==
[~2019-02-28] VITALS: Ht 177.8 cm; Wt 107.4 kg
[~2019-02-28 10:33] MED LIST changes: +DOCU100 PO; +MELA3 PO; +METF500 PO; +Nitro-Dur1 EACH TD; +TRIA15CR3 TOP
== END 2019-02-28 12:49 | disposition home or self-care (01) ==
LOC: ORSCSDS 10:33
PROVIDERS: Internal Medicine Gastroenterology
PROC: 0DBK8ZX Excision of Ascending Colon, Via Natural or Artificial Opening Endoscopic, Diagnostic (ICD-10-PCS; principal; 2019-02-28 12:00)
DX: K92.1 Melena (principal); D12.2 Benign neoplasm of ascending colon; Z86.010 Personal history of colon polyps; K57.30 Diverticulosis of large intestine without perforation or abscess without bleeding; K64.8 Other hemorrhoids; I10 Essential (primary) hypertension; E11.9 Type 2 diabetes mellitus without complications; Z87.891 Personal history of nicotine dependence; Z79.899 Other long term (current) drug therapy
CPT/HCPCS: 82947; 88305; J2704; J7120

== ENCOUNTER → 2019-05-21 | Outpatient (CLI) | payer MEDICARE | END | disposition home or self-care (01) | LOC: PLD 08:31 → LAB SHORT 08:31 | DX: D48.5 Neoplasm of uncertain behavior of skin (principal) | CPT/HCPCS: 88305 ==

== ENCOUNTER 2022-06-01 09:27 | Day surgery (SDC) | payer MEDICARE ==
[~2022-06-01] VITALS: Ht 180.3 cm; Wt 113.0 kg
[2022-06-01] MEDS ORDERED: ISOSORBIDE DINI40 MG (09:48)
[2022-06-01] MEDS ORDERED: ELIQUIS2.5 MG (09:48)
[2022-06-01] MEDS ORDERED: TAMS.4ER (09:48)
[2022-06-01] MEDS ORDERED: PANT20 (09:48)
[2022-06-01] MEDS ORDERED: DOCU100 (09:49)
[2022-06-01] MEDS ORDERED: TRAZ50 (09:49)
--- NOTE | 2022-06-01 09:58 | NUR ---
06/01/22 0[address] TERTRACAINE DROP PLACED IN LEFT EYE AT 0950 PLEDGET PLACED IN LEFT EYE AT 0951 CALL LIGHT WITHIN REACH
--- NOTE | 2022-06-01 12:00 | NUR ---
06/01/[address] [place], [place] [address] PATIENT HAD SOME ELEVATED BLOOD PRESSURES, CONSULTED CHANDLER COLIN TO DISCHARGE IF NEAR BASELINE/PRE-OP. PRE-OP BLOOD PRESSURES WERE 170'S/80'S. RN TOOK SEVERAL MORE BLOOD PRESSURES AND ALL WERE NEAR PATIENT'S PRE-OP VALUES SO PATIENT WAS DISCHARGED. PATIENT STATED NO SYMPTOMS OF HEADACHE OR OTHER ISSUES AT THAT TIME AND EXPRESSED READINESS TO GO HOME.
== END 2022-06-01 11:47 | disposition home or self-care (01) ==
LOC: ORSCSDS 09:27
PROVIDERS: Student in an Organized Health Care Education/Training Program
PROC: 08RK3JZ Replacement of Left Lens with Synthetic Substitute, Percutaneous Approach (ICD-10-PCS; principal; 2022-06-01 11:15)
DX: E11.36 Type 2 diabetes mellitus with diabetic cataract (principal); H25.12 Age-related nuclear cataract, left eye; H52.202 Unspecified astigmatism, left eye; I10 Essential (primary) hypertension; I48.91 Unspecified atrial fibrillation; I25.10 Atherosclerotic heart disease of native coronary artery without angina pectoris; E66.9 Obesity, unspecified; Z68.35 Body mass index [BMI] 35.0-35.9, adult; Z79.01 Long term (current) use of anticoagulants; Z79.899 Other long term (current) drug therapy
CPT/HCPCS: 82947; A9270; J2001; J2250; J3010; J7040; V2632

== ENCOUNTER 2022-06-15 08:49 | Day surgery (SDC) | payer MEDICARE ==
[~2022-06-15] VITALS: Ht 180.3 cm; Wt 112.2 kg
[~2022-06-15 08:49] MED LIST changes: +DOCU100; +ELIQUIS2.5 MG; +ISOSORBIDE DINI40 MG; +PANT20; +TAMS.4ER; +TRAZ50
--- NOTE | 2022-06-15 10:13 | NUR ---
06/15/22 1013 Eugenia Reyes TETRACAINE DROP AND PLEDGET PLACED TO OPERATIVE EYE PER ORDERS
== END 2022-06-15 11:12 | disposition home or self-care (01) ==
LOC: ORSCSDS 08:49
PROVIDERS: Student in an Organized Health Care Education/Training Program
PROC: 08RJ3JZ Replacement of Right Lens with Synthetic Substitute, Percutaneous Approach (ICD-10-PCS; principal; 2022-06-15 10:30)
DX: H25.11 Age-related nuclear cataract, right eye (principal); H52.201 Unspecified astigmatism, right eye; I10 Essential (primary) hypertension; I48.91 Unspecified atrial fibrillation; Z79.01 Long term (current) use of anticoagulants; I25.10 Atherosclerotic heart disease of native coronary artery without angina pectoris; E11.9 Type 2 diabetes mellitus without complications; E66.9 Obesity, unspecified; Z68.35 Body mass index [BMI] 35.0-35.9, adult; Z79.899 Other long term (current) drug therapy; Z79.82 Long term (current) use of aspirin
CPT/HCPCS: 82947; J2001; J2250; J3010; J7040; V2632

== ENCOUNTER 2023-02-05 17:45 | Emergency (ER) | payer OTHER, MEDICARE ==
[~2023-02-05] VITALS: Ht 180.3 cm; Wt 99.8 kg
[~2023-02-05 17:45] MED LIST changes: +AMIODARONE HCL100 M3 PO; +ASPIR 8181 M1 PO; -DOCU100; -ELIQUIS2.5 MG; +ELIQUIS2.5 MG PO; -ISOSORBIDE DINI40 MG; +Isosorbide Mono30 MG PO; -LO-DOSE ASPIRIN81 MG PO; -PANT20; +PANT20 PO; -TAMS.4ER; -TRAZ50; +TRAZ50 PO
[2023-02-05 18:25] LABS: Calcium, Ionized (POC) 1.13 mmol/L (1.10-1.46); Chloride (POC) 98 mmol/L (98-108); Creatinine (POC) 1.5 mg/dL (0.8-1.3); Glucose (ISTAT POC) 82 mg/dL (70-99); Hemoglobin (POC) 13.9 g/dL (13.5-17.5); Sodium (POC) 138 mmol/L (135-148); Total CO2 (POC) 28 mmol/L (21-32)
[2023-02-05] MEDS ORDERED: Vibramycin100 MG PO (20:18)
[2023-02-05] MEDS ORDERED: HYDR1TAB94 PO (20:18)
[2023-02-05 20:30] VITALS: BP 173/68
== END 2023-02-05 20:41 | disposition home or self-care (01) ==
LOC: ER 17:45
PROVIDERS: Emergency Medicine
DX: S62.664A Nondisplaced fracture of distal phalanx of right ring finger, initial encounter for closed fracture (principal); S61.215A Laceration without foreign body of left ring finger without damage to nail, initial encounter; S00.83XA Contusion of other part of head, initial encounter; Z79.01 Long term (current) use of anticoagulants; W18.30XA Fall on same level, unspecified, initial encounter; Z23 Encounter for immunization; Z88.0 Allergy status to penicillin; Z88.8 Allergy status to other drugs, medicaments and biological substances; Z79.899 Other long term (current) drug therapy; Z79.82 Long term (current) use of aspirin
CPT/HCPCS: 12002; 70450; 73140; 80047; 85014; 90471; 90715; 93005; 93010; 99284-25; A9270

== ENCOUNTER → 2023-04-20 | Outpatient (CLI) | payer OTHER ==
[~2023-04-20] MED LIST changes: +HYDR1TAB94 PO; +Vibramycin100 MG PO
[2023-04-20 15:05] LABS: Source, Urine Clean Catch
[2023-04-20 19:08] LABS: Appearance, Urine Clear (Clear); Blood, Urine Neg (Neg); Color, Urine Amber (P-Yellow); Glucose Qualitative, Urine 3+ (Neg); Ketones, Urine Neg (Neg); Leukocyte Esterase, Urine 1+ (Neg); Nitrite, Urine Neg (Neg); Protein, Urine 2+ (Neg); Specific Gravity, Urine 1.025 (1.003-1.022); Urobilinogen, Urine 1+ (Normal)
[2023-04-20 19:17] LABS: Bilirubin, Urine 1+ (Neg)
[2023-04-20 19:19] LABS: Bacteria Few /hpf; Red Blood Cells, Urine Not Seen /hpf (0-2); Spermatozoa Rare /hpf; Squamous Epithelial Cells Not Seen /hpf (Few)
[2023-04-20 19:48] LABS: Protein, Urine Random 34.6 mg/dL (0.0-11.9); Protein/Creat Ratio, Ur Random 0.1
== END ==
LOC: LAB SHORT 15:00 → LAB 15:00
PROVIDERS: Hospitalist
DX: N18.31 Chronic kidney disease, stage 3a (principal)
CPT/HCPCS: 81001; 82570; 84156; 87086